=== PATIENT | male | born 1960 | race Caucasian/White ===

== ENCOUNTER 2017-02-17 10:16 | Emergency (ER) | payer OTHER ==
[2017-02-17 10:20] VITALS: TEMP 98.4; BMI 28.3
[2017-02-17] MEDS ORDERED: LISINOPRIL 20 MG TABLET (FP) PO ONE (11:11)
[2017-02-17] MEDS ORDERED: ACETAMINOPHEN 325 MG TABLET (FP) PO ONE (11:12)
[2017-02-17] MEDS ORDERED: METOPROLOL SUCCINATE 25 MG TAB.SR.24H (FP) PO ONE (11:12)
[2017-02-17] MEDS ORDERED: METOPROLOL SUCCINATE 50 MG TAB.SR.24H (FP) ONE (11:15)
[2017-02-17] MEDS ORDERED: LISINOPRIL 20 MG TABLET (FP) ONE (11:15)
[2017-02-17] MEDS ORDERED: ACETAMINOPHEN 325 MG TABLET (FP) ONE (11:17)
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
[2017-02-17 12:34] VITALS: BP 148/101; PULSE 78
== END 2017-02-17 12:42 | disposition home or self-care (01) ==
LOC: JER 10:16 → JERFT 10:16 → JER 12:42
DX: S00.03XA Contusion of scalp, initial encounter (principal); I10 Essential (primary) hypertension; V78.4XXA Person boarding or alighting from bus injured in noncollision transport accident, initial encounter; Y92.488 Other paved roadways as the place of occurrence of the external cause; Y93.89 Activity, other specified; Y99.0 Civilian activity done for income or pay
CPT/HCPCS: 70450-TC; 99281-25

== ENCOUNTER 2017-06-05 07:54 | Emergency (ER) | payer OTHER ==
[2017-06-05 08:02] VITALS: BP 150/85; PULSE 55; TEMP 98.3; BMI 30.7
--- NOTE | 2017-06-05 10:24 | PDOC ---
History of Present Illness - History of Present Illness Initial Comments: 06/05/17 11:26 "The patient is a 57 year old male, with a significant past medical history of diverticulitis, hypertension, polycystic kidney disease (s/p right nephrectomy) , who presents to the emergency department with left lower quadrant pain for approximately 6 days. He reports his pain is nonradiating, and denies any nausea , vomiting, diarrhea, constipation, or rectal bleeding. The patient states his symptoms feel exactly like his diverticulitis pain in the past, for which he has had 2 admissions. Patient reports he follows up with GI, Dr. Sanders, who last did an colonoscopy(2014) revealing diverticulitis. He denies any fever, chills, headache, or dizziness. He denies any dysuria, hematuria, frequency, or urgency. He denies any recent travel or sick contacts. Allergies: NKDA Past Surgical History: None reported Social History: Non smoker. No ETOH or recreational drug use. PCP: Dr. Miller GI: Dr. Sanders " <Evans Young - Last Filed: 06/05/17 13:26> <Selene Santillan - Last Filed: 06/05/17 14:14> - General Chief Complaint: Pain Stated Complaint: DIVERTICULITIS FLARE UP Time Seen by Provider: 06/05/17 09:52 Past History - Past Medical History COPD: No GI Disorders: Yes (diverticulitis.) Disorders: Yes (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) HTN: Yes - Surgical History Lung Surgery: Yes (BENIGN TUMOR BET LUNG AND THYROID) Orthopedic Surgery: Yes (RIGHT HAND; RIGHTR ELBOW; ROTATOR CUFF) - Suicide/Smoking/Psychosocial Hx Smoking History: Never smoked Have you smoked in the past 12 months: No Hx Alcohol Use: No Drug/Substance Use Hx: No Substance Use Type: None Hx Substance Use Treatment: No <Evans Young - Last Filed: 06/05/17 13:26> <Selene Santillan - Last Filed: 06/05/17 14:14> - Past Medical History Allergies/Adverse Reactions: Allergies Allergy/AdvReac Type Severity Reaction Status Date / Time No Known Allergies Allergy Verified 06/05/17 08:02 Home Medications: Ambulatory Orders Acetaminophen [Tylenol .Regular Strength -] 650 mg PO Q4H PRN #0 tablet Lisinopril [Prinivil] 20 mg PO DAILY #30 tablet 01/26/16 Metoprolol Succinate [Toprol XL -] 25 mg PO DAILY tab.sr.24h 01/26/16 Ciprofloxacin [Cipro -] 500 mg PO Q12H #14 tablet 06/05/17 Metronidazole [Flagyl -] 500 mg PO TID #21 tablet 06/05/17 Review of Systems - Review of Systems Comments:: 06/05/17 11:26 "GENERAL/CONSTITUTIONAL: No fever or chills. No weakness. HEAD, EYES, EARS, NOSE AND THROAT: No change in vision. No ear pain or discharge. No sore throat. CARDIOVASCULAR: No chest pain or shortness of breath. RESPIRATORY: No cough, wheezing, or hemoptysis. GASTROINTESTINAL: Yes left lower quadrant pain. No nausea, vomiting, diarrhea or constipation. GENITOURINARY: No dysuria, frequency, or change in urination. MUSCULOSKELETAL: No joint or muscle swelling or pain. No neck or back pain. SKIN: No rash NEUROLOGIC: No headache, vertigo, loss of consciousness, or change in strength/ sensation. ENDOCRINE: No increased thirst. No abnormal weight change. HEMATOLOGIC/LYMPHATIC: No anemia, easy bleeding, or history of blood clots. ALLERGIC/IMMUNOLOGIC: No hives or skin allergy. " <Evans Young - Last Filed: 06/05/17 13:26> *Physical Exam - Vital Signs Last Vital Signs Temp Pulse Resp BP Pulse Ox 98.3 F 55 L 20 150/85 98 06/05/17 07:55 06/05/17 07:55 06/05/17 07:55 06/05/17 07:55 06/05/17 07:55 - Physical Exam Comments: 06/05/17 11:26 "GENERAL: Awake, alert, and fully oriented, in no acute distress HEAD: No signs of trauma EYES: PERRLA, EOMI, sclera anicteric, conjunctiva clear ENT: Auricles normal inspection, hearing grossly normal, nares patent, oropharynx clear without exudates. Moist mucosa NECK: Nontender, no stepoffs, Normal ROM, supple, no lymphadenopathy, JVD, or masses LUNGS: Breath sounds equal, clear to auscultation bilaterally. No wheezes, and no crackles HEART: Regular rate and rhythm, normal S1 and S2, no murmurs, rubs or gallops ABDOMEN: Left lower quadrant tenderness to palpation. Soft, normoactive bowel sounds. No guarding, no rebound. No masses EXTREMITIES: Normal range of motion, no edema. No clubbing or cyanosis. No cords, erythema, or tenderness NEUROLOGICAL: Cranial nerves II through XII intact. 5/5 strength and sensation in all extremities, Normal speech, normal gait SKIN: Warm, Dry, normal turgor, no rashes or lesions noted." <Evans Young - Last Filed: 06/05/17 13:26> - Vital Signs Last Vital Signs Temp Pulse Resp BP Pulse Ox 98.3 F 55 L 20 150/85 98 06/05/17 07:55 06/05/17 07:55 06/05/17 07:55 06/05/17 07:55 06/05/17 07:55 <Selene Santillan - Last Filed: 06/05/17 14:14> ED Treatment Course - LABORATORY CBC & Chemistry Diagram: 06/05/17 10:11 06/05/17 10:11 <Evans Young - Last Filed: 06/05/17 13:26> - LABORATORY CBC & Chemistry Diagram: 06/05/17 10:11 06/05/17 10:11 - ADDITIONAL ORDERS Additional order review: Laboratory Results 06/05/17 06/05/17 06/05/17 10:11 10:11 10:11 PT with INR 12.80 H INR 1.13 PTT (Actin FS) 27.7 Sodium 137 Potassium 4.1 Chloride 105 Carbon Dioxide 25 Anion Gap 7 L BUN 12 Creatinine 1.1 Creat Clearance w eGFR > 60 Random Glucose 113 H Calcium 9.1 Magnesium Cancelled Total Bilirubin 0.8 AST 14 L D ALT 36 D Alkaline Phosphatase 74 Total Protein 7.1 Albumin 3.7 Total Amylase Cancelled Lipase 166 Urine Color Urine Appearance Urine pH Ur Specific [place] Urine Protein Urine Glucose (UA) Urine Ketones Urine Blood Urine Nitrite Urine Bilirubin Urine Urobilinogen Ur Leukocyte Esterase 06/05/17 10:11 PT with INR INR PTT (Actin FS) Sodium Potassium Chloride Carbon Dioxide Anion Gap BUN Creatinine Creat Clearance w eGFR Random Glucose Calcium Magnesium Total Bilirubin AST ALT Alkaline Phosphatase Total Protein Albumin Total Amylase Lipase Urine Color Ltyellow Urine Appearance Clear Urine pH 5.0 Ur Specific [place] 1.013 Urine Protein Negative Urine Glucose (UA) Negative Urine Ketones Negative Urine Blood Negative Urine Nitrite Negative Urine Bilirubin Negative Urine Urobilinogen Negative Ur Leukocyte Esterase Negative 06/05/17 10:11 RBC 4.32 MCV 95.6 MCHC 33.5 RDW 13.5 MPV 8.7 Neutrophils % 64.3 Lymphocytes % 22.7 Monocytes % 10.9 H Eosinophils % 1.6 Basophils % 0.5 - RADIOLOGY Radiograph Interpretation: 06/05/17 14:13 EXAM: CT Abdomen and Pelvis INTERPRETED BY: Dr. Pritchett REVIEWED BY: Dr. Young IMPRESSION: Acute uncomplicated diverticulitis is seen involving the lower descending/upper sigmoid colon. There has been interval resolution of acute diverticulitis involving the mid and lower thirds of the sigmoid colon since the prior CT exam of 01/14/2016. The remainder of the exam appears unchanged. Status post right nephrectomy. Diffuse hepatic steatosis. Small to moderate hiatal hernia. <Selene Santillan - Last Filed: 06/05/17 14:14> Medical Decision Making - Medical Decision Making 06/05/17 10:20 57 M with h/o diverticulitis presenting with 1 week of LLQ pain. Concerning for acute diverticulitis flare. Pt hemodynamically stable, afebrile. Low suspicion for abscess or flare. Will evaluate with CT abd/pelvis. - Labs - CTAP non-con (pt has prior nephrectomy) 06/05/17 13:27 CT consistent with uncomplicated diverticulitis of sigmoid colon. Pt to be started on cipro/flagyl. Will f/u with GI. 06/05/17 13:36 Pt reassessed - able to tolerate PO, vitals stable. Clinically stable for DC. Pt to call his GI doctor this afternoon upon dc. <Evans Young - Last Filed: 06/05/17 13:26> *DC/Admit/Observation/Transfer - Attestations Physician Attestion: 06/05/17 13:39 I, Dr. Evans Young MD, attest that this document has been prepared under my direction and personally reviewed by me in its entirety. I further attest, that it accurately reflects all work, treatment, procedures and medical decision -making performed by me. <Evans Young - Last Filed: 06/05/17 13:26> - Attestations Scribe Attestion: 06/05/17 11:45 Documentation prepared by Selene Santillan, acting as lpn or medical assistant for Evans Young MD. <Selene Santillan - Last Filed: 06/05/17 14:14> Diagnosis at time of Disposition: Diverticulitis - Discharge Dispostion Disposition: HOME - Prescriptions Prescriptions: Ciprofloxacin [Cipro -] 500 mg PO Q12H #14 tablet Metronidazole [Flagyl -] 500 mg PO TID #21 tablet - Referrals Referrals: Heraclio Sanders MD [Staff Physician] - Fuad Corcoran MD [Staff Physician] - - Patient Instructions Printed Discharge Instructions: DI for Diverticulitis Additional Instructions: route supervisor your prescriptions for cipro and flagyl at [facility]. Take them as prescribed starting tomorrow. If you experience worsening pain, vomiting, fevers, or any other concerning symptoms, return to the ER immediately. Otherwise, call your GI doctor today to set up a follow up appointment within 1 week. You should also see a surgeon to discuss potentially having surgery for your recurrent diverticulitis. Call the number provided to make an appointment.
[2017-06-05 10:25] LABS: BASO % 0.5 % (0-2.0); EOS % 1.6 % (0-4.5); HEMATOCRIT 41.3 % (35.4-49); HEMOGLOBIN 13.8 GM/dL (11.7-16.9); LYMPH % 22.7 % (8-40); MCH 32.1 pg (25.7-33.7); MCHC 33.5 g/dl (32.0-35.9); MEAN CELL VOLUME 95.6 fl (80-96); MEAN PLT VOLUME 8.7 fl (7.5-11.1); MONO % 10.9 % (3.8-10.2); NEUT % 64.3 % (42.8-82.8); PLATELET COUNT 213 K/MM3 (134-434); RBC 4.32 M/mm3 (4.00-5.60); RDW 13.5 % (11.9-15.9); WHITE BLOOD COUNT 6.9 K/mm3 (4.0-10.0)
[2017-06-05 10:35] LABS: INR 1.13 (0.82-1.09); PROTHROMBIN TIME (PATIENT) 12.8 SEC (9.98-11.88)
[2017-06-05 10:39] LABS: ACTIVATED PTT 27.7 SECONDS (26.9-34.4)
[2017-06-05 10:45] LABS: ALBUMIN 3.7 g/dl (3.4-5.0); ALK PHOS 74 U/L (45-117); ANION GAP 7 (8-16); BILIRUBIN,TOTAL 0.8 mg/dL (0.2-1.0); BLOOD UREA NITROGEN 12 mg/dL (7-18); CALCIUM 9.1 mg/dL (8.5-10.1); CHLORIDE 105 mmol/L (98-107); CO2 25 mmol/L (21-32); CREATININE 1.1 mg/dL (0.7-1.3); GLUCOSE,RANDOM 113 mg/dL (74-106); LIPASE 166 U/L (73-393); POTASSIUM 4.1 mmol/L (3.5-5.1); SGOT/AST 14 U/L (15-37); SGPT/ALT 36 U/L (12-78); SODIUM 137 mmol/L (136-145); TOT PROT 7.1 g/dl (6.4-8.2)
[2017-06-05 11:27] LABS: URINE APPEARANCE CLEAR; URINE BILIRUBIN NEGATIVE (NEGATIVE); URINE BLOOD NEGATIVE (NEGATIVE); URINE COLOR LTYELLOW; URINE GLUCOSE (UA) NEGATIVE (NEGATIVE); URINE KETONE NEGATIVE (NEGATIVE); URINE LEUK ESTERASE NEGATIVE (NEGATIVE); URINE NITRITE NEGATIVE (NEGATIVE); URINE PROTEIN NEGATIVE (NEGATIVE); URINE UROBILINOGEN NEGATIVE mg/dL (0.2-1.0)
[2017-06-05 11:55] LABS: AMYLASE 49 U/L (25-115); MAGNESIUM 2.2 mg/dL (1.8-2.4)
[2017-06-05] MEDS ORDERED: metroNIDAZOLE 500 MG TABLET PO ONE (13:26)
[2017-06-05] MEDS: CIPROFLOXACIN 500 MG TABLET (RESTRICTED TO ID) PO ONE ×2 (13:33→14:24)
[2017-06-05] MEDS ORDERED: metroNIDAZOLE 250 MG TABLET ONE (13:36)
[2017-06-05] MEDS ORDERED: LORazepam 2 MG/ML SDV VIAL ONE (13:53)
== END 2017-06-05 14:24 | disposition home or self-care (01) ==
LOC: JER 07:54
DX: K57.92 Diverticulitis of intestine, part unspecified, without perforation or abscess without bleeding (principal); I10 Essential (primary) hypertension; Q61.3 Polycystic kidney, unspecified
CPT/HCPCS: 36415; 74176-TC; 80053; 81003; 82150; 83690; 83735; 85025; 85610; 85730; 86850; 86900; 86901; 99283-25

== ENCOUNTER 2017-06-11 12:58 | Emergency (ER) | payer OTHER ==
[2017-06-11 13:17] VITALS: BMI 30.4
[2017-06-11] MEDS ORDERED: ACETAMINOPHEN 325 MG TABLET (FP) PO ONE (14:29)
[2017-06-11] MEDS ORDERED: ACETAMINOPHEN 325 MG TABLET (FP) ONE (14:35)
--- NOTE | 2017-06-11 14:52 | PDOC ---
History of Present Illness - General Chief Complaint: Pain, Acute Stated Complaint: STOMACH PAIN Time Seen by Provider: 06/11/17 14:14 - History of Present Illness Initial Comments: 06/11/17 14:47 Pt is a 57yo M with PMHx of HTN, PCKD (s/p R nephrectomy), currently being treated for recently diagnosed diverticulitis. He was sent from Dr. Bryson's office for a regularly scheduled followup but stated he had new onset RUQ pain for the past 6 days. He states the pain is constant but at times is exacerbated with foods. He has never had this pain before. Assoc with nausea. Denies vomiting, diarrhea, constipation. Denies radiation to the back. Denies chest pain. Denies prior cholecystectomy or problems with gallbladder. Denies alcohol or IVDA. Currently able to tolerate foods, but the pain is bothering him. Patient is still taking the Cipro/flagyl regimen from recent diverticulitis Past History - Past Medical History Allergies/Adverse Reactions: Allergies Allergy/AdvReac Type Severity Reaction Status Date / Time No Known Allergies Allergy Verified 06/11/17 13:13 Home Medications: Ambulatory Orders Acetaminophen [Tylenol .Regular Strength -] 650 mg PO Q4H PRN #0 tablet Lisinopril [Prinivil] 20 mg PO DAILY #30 tablet 01/26/16 Metoprolol Succinate [Toprol XL -] 25 mg PO DAILY tab.sr.24h 01/26/16 Ciprofloxacin [Cipro -] 500 mg PO Q12H #14 tablet 06/05/17 Metronidazole [Flagyl -] 500 mg PO TID #21 tablet 06/05/17 COPD: No GI Disorders: Yes (diverticulitis.) Disorders: Yes (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) HTN: Yes - Surgical History Lung Surgery: Yes (BENIGN TUMOR BET LUNG AND THYROID) Orthopedic Surgery: Yes (RIGHT HAND; RIGHTR ELBOW; ROTATOR CUFF) - Immunization History Immunization Up to Date: Yes - Suicide/Smoking/Psychosocial Hx Smoking History: Never smoked Have you smoked in the past 12 months: No If you are a former smoker, when did you quit?: 30YRS Information on smoking cessation initiated: No Hx Alcohol Use: No Drug/Substance Use Hx: No Substance Use Type: None Hx Substance Use Treatment: No *Physical Exam - Vital Signs Last Vital Signs Temp Pulse Resp BP Pulse Ox 98.3 F 51 L 16 158/95 98 06/11/17 13:14 06/11/17 13:14 06/11/17 13:14 06/11/17 13:14 06/11/17 13:14 - Physical Exam Comments: 06/11/17 14:50 GEN: AAOx3, NAD, Sitting in chair comfortably HEENT: PERRLA, Scleral icterus and sublingual icterus noted, EOMi CV: S1, S2, RRR LUNG: CTABL ABD: Soft, TTP in RUQ area w/ positive [place], also TTP in LLQ (site of recent diverticulitis) MSK: No edema, no erythem NEURO: CN 2-12 intact grossly ED Treatment Course - LABORATORY CBC & Chemistry Diagram: 06/11/17 14:47 06/11/17 14:47 - RADIOLOGY Radiology Studies Ordered: RUQ Ultrasound HIDA Scan 06/11/17 15:09 Medical Decision Making - Medical Decision Making 06/11/17 14:53 Pt is a 57yo M with PMHx of HTN, currently being treated for recent diverticulitis who presented with 6 days of RUQ pain. Likely related to gallbladder biliary colic/cholecystitis. Other ddx include atypical ACS presentation, pancreatitis. Will get CBC, CMP, Lipase, Troponin, EKG. Will get RUQ ultrasound to check for gallstones 06/11/17 15:36 CBC, CMP, Trops, Lipase are WNL. Pain has improved with Tylenol x1. Awaiting results of RUQ u/s 06/11/17 16:44 RUW ultrasound negative, no gallstones. Called Dr. Bryson, stated patient is improving with normal labs and ultrasound. As long as patient can tolerate foods , he can be discharged home. Patient is to continue taking antibiotics for his diverticulitis (Cipro/Flagyl). Nurse informed. Patient informed. *DC/Admit/Observation/Transfer Diagnosis at time of Disposition: Abdominal pain Qualifiers: Abdominal location: right upper quadrant Qualified Code(s): R10.11 - Right upper quadrant pain - Discharge Dispostion Disposition: HOME Condition at time of disposition: Improved Admit: No - Referrals Referrals: Wilberto Bryson MD [Staff Physician] - 1 week - Patient Instructions Additional Instructions: You were seen in the ER due to abdominal pain. It may be due to indigestion. There is no gallstones in your gallbladder. Your labs are normal. We called Dr. Bryson, and he wants you to see him in 1 week. Please continue taking your antibiotics for diverticulitis (Ciprofloxacin and Metronidazole). If you experience severe abdominal pain, chest pain, or shortness of breath, please return to the Emergency Room. - Post Discharge Activity
--- NOTE | 2017-06-11 14:56 | PDOC ---
Attending Attestation - Resident Resident Name: Jeovany Hermosillo - ED Attending Attestation I have performed the following: I have examined & evaluated the patient, The case was reviewed & discussed with the resident, I agree w/resident's findings & plan, Exceptions are as noted - HPI HPI: 06/11/17 14:54 57y M hx of diverticulitis, recently treated for such, sent by GI for complaint for new RUQ pain, worse with food. No prior history of GB diaseas/stones. w/o cp , vomiting, f/c, sob. +associated nasuea w/o vomiting. no etoh, nsaid abuse. on exam pt in no distress abd soft with mild tenderness in RUQ, no rebound/guarding ddx: gall stones, ocnsider cholecystitis, however very low suspicion w/o infectious complaints will obtain US, labs will dw gI at dispo - Physicial Exam PE: 06/14/17 11:41 see above - Medical Decision Making 06/14/17 11:41 see above
[2017-06-11 14:59] LABS: BASO % 0.8 % (0-2.0); EOS % 0.8 % (0-4.5); HEMATOCRIT 41.3 % (35.4-49); HEMOGLOBIN 13.6 GM/dL (11.7-16.9); LYMPH % 17.2 % (8-40); MCH 31.5 pg (25.7-33.7); MCHC 33.1 g/dl (32.0-35.9); MEAN CELL VOLUME 95.2 fl (80-96); MEAN PLT VOLUME 8.3 fl (7.5-11.1); MONO % 11.1 % (3.8-10.2); NEUT % 70.1 % (42.8-82.8); PLATELET COUNT 272 K/MM3 (134-434); RBC 4.33 M/mm3 (4.00-5.60); RDW 13.6 % (11.9-15.9); WHITE BLOOD COUNT 9.5 K/mm3 (4.0-10.0)
[2017-06-11 15:22] LABS: ALBUMIN 3.7 g/dl (3.4-5.0); ANION GAP 10 (8-16); BILIRUBIN,TOTAL 0.3 mg/dL (0.2-1.0); BLOOD UREA NITROGEN 11 mg/dL (7-18); CALCIUM 8.9 mg/dL (8.5-10.1); CHLORIDE 106 mmol/L (98-107); CO2 24 mmol/L (21-32); GLUCOSE,RANDOM 90 mg/dL (74-106); LIPASE 186 U/L (73-393); SGOT/AST 28 U/L (15-37); SGPT/ALT 57 U/L (12-78); SODIUM 140 mmol/L (136-145); TOT PROT 7.2 g/dl (6.4-8.2)
[2017-06-11 15:24] LABS: ALK PHOS 65 U/L (45-117)
[2017-06-11 16:55] VITALS: TEMP 98.1
[2017-06-11 17:22] VITALS: BP 121/74; PULSE 80
--- NOTE | 2017-06-12 10:51 | EKG ---
Test Reason : Blood Pressure : / mmHG Vent. Rate : 047 BPM Atrial Rate : 047 BPM P-R Int : 240 ms QRS Dur : 114 ms QT Int : 460 ms P-R-T Axes : 028 -43 -12 degrees QTc Int : 407 ms SINUS BRADYCARDIA WITH 1ST DEGREE A-V BLOCK LEFT AXIS DEVIATION INCOMPLETE RIGHT BUNDLE BRANCH BLOCK MODERATE VOLTAGE CRITERIA FOR LVH, MAY BE NORMAL VARIANT CANNOT RULE OUT SEPTAL INFARCT , AGE UNDETERMINED ABNORMAL ECG WHEN COMPARED WITH ECG OF 23-JAN-2016 10:18, INCOMPLETE RIGHT BUNDLE BRANCH BLOCK IS NOW PRESENT MINIMAL CRITERIA FOR SEPTAL INFARCT ARE NOW PRESENT Confirmed by SERVANDO CANDELARIO, TRICIA ([id number]) on 06/12/2017 10:51:24 AM Referred By: Confirmed By:TRICIA AL MD
== END 2017-06-11 17:21 | disposition home or self-care (01) ==
LOC: JER 12:58
DX: K57.92 Diverticulitis of intestine, part unspecified, without perforation or abscess without bleeding (principal); R10.11 Right upper quadrant pain; Q61.3 Polycystic kidney, unspecified; I10 Essential (primary) hypertension; Z90.5 Acquired absence of kidney
CPT/HCPCS: 36415; 76705-TC; 80053; 83690; 84484; 85025; 93005; 93010; 99283-25

== ENCOUNTER 2017-12-19 08:25 | Inpatient (IN) | payer OTHER ==
[2017-12-17 12:58] VITALS: BMI 30.7
--- NOTE | 2017-12-19 07:11 | HP ---
History & Physical Update - History History: No Change - Physical Physical: No Change - Assessment Assessment: No Change - Plan Plan: No Change (H&P located in patient's paper chart. Completed 12/11/17. No new complaints or medications. Here today for elective ACDF C4-C6.)
[2017-12-19] MEDS ORDERED: oxyCODONE HCL 10 MG SUSTAINED ACTING TABLET PO STA (09:03)
[2017-12-19] MEDS ORDERED: CEFAZOLIN 2 GM in DEXTROSE 5%-WATER - 100 ML IVPB ONE (09:03)
[2017-12-19] MEDS ORDERED: LIDOCAINE 1%/EPI 1:100000 (20 ML MULTI DOSE VIAL) ONE (10:41)
[2017-12-19] MEDS ORDERED: DEXAMETHASONE SOD PHOSPHATE/PF 10 MG/ML SDV ONE (11:33)
[2017-12-19] MEDS ORDERED: BUPIVACAINE HCL/PF (5 MG/ML) 30 ML VIAL IJ ONE (11:33)
[2017-12-19] MEDS ORDERED: MIDAZOLAM HCL 2 MG/2 ML SINGLE DOSE VIAL ONE (11:33)
[2017-12-19] MEDS ORDERED: fentaNYL CITRATE 250 MCG/5 ML VIAL ONE (12:00)
[2017-12-19] MEDS ORDERED: PROPOFOL 20 ML ONE ×7 (12:00→14:12)
[2017-12-19] MEDS ORDERED: LIDOCAINE HCL/PF 2% SDV 5ML VIAL ONE (12:02)
[2017-12-19] MEDS ORDERED: ONDANSETRON 4 MG/2 ML VIAL ONE (12:02)
[2017-12-19] MEDS ORDERED: DEXAMETHASONE SOD PHOSPHATE 4 MG/1 ML VIAL ONE (12:02)
[2017-12-19] MEDS ORDERED: ceFAZolin SODIUM 1 GM VIAL ONE ×2 (12:02→12:45)
[2017-12-19] MEDS ORDERED: THROMBIN (BOVINE) 5,000 UNIT VIAL TP ONE (12:12)
[2017-12-19] MEDS ORDERED: ePHEDrine SULFATE 50 MG/1 ML AMPULE ONE (12:57)
--- NOTE | 2017-12-19 14:42 | OP ---
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
[2017-12-19] MEDS ORDERED: oxyCODONE HCL 5 MG TABLET PO PRN (14:43)
[2017-12-19] MEDS ORDERED: ONDANSETRON 4 MG/2 ML VIAL IVPUSH PRN (14:43)
--- NOTE | 2017-12-19 14:43 | SURG ---
Surgery Research Engineer Note Research Engineer: Yuan Lennon PA-C Date of Service: 12/19/17 Diagnosis: C4/5, C5/6 stenosis, radiculopathy, myelopathic Procedure: C4/5, C5/6 ACDF allograft implant x 2, neuromonitoring I was present for the entirety of the operative procedure. For further detail, please refer to operative report. Visit type - Case Type Case Type: Scheduled - New patient This patient is new to me today: Yes Date on this admission: 12/19/17
[2017-12-19] MEDS ORDERED: LACTATED RINGERS SOLUTION 1,000 ML IV SCH (14:45)
--- NOTE | 2017-12-19 15:41 | OP ---
DATE OF OPERATION: 12/19/2017 PREOPERATIVE DIAGNOSIS: Cervical stenosis, C4-5 and C5-6. POSTOPERATIVE DIAGNOSIS: Cervical stenosis, C4-5 and C5-6. PROCEDURE PERFORMED: 1. Anterior cervical diskectomy and fusion, C4-5. 2. Anterior cervical diskectomy and fusion, C5-6. 3. Placement of instrumentation, C4 to C6. SURGEON: Dany Brown MD BOND UNDERWRITER: JUDI Arshad ESTIMATED BLOOD LOSS: 50 mL INTRAVENOUS FLUIDS: Per Anesthesia. ANESTHESIA: General. COMPLICATIONS: None. DISPOSITION: Patient brought to the PACU in stable condition. INDICATION FOR SURGERY. The patient is a 57-year-old gentleman who has been suffering from significant pain from his neck down his arms. X-rays and MRI were completed which noted that he had cervical stenosis at C4-5 and C5-6. He had gone through an exhaustive course of treatment for this, which included medications, physical therapy, as well as injections. Unfortunately, his pain continued to persist despite all this. At this point, risks, benefits, and alternatives were discussed, and the patient consented to surgery. DESCRIPTION OF PROCEDURE: Patient was brought to the operating room by anesthesia staff. After appropriate patient identification was performed, general anesthesia was given. A superficial cervical block was also given. Patient was placed supine on the OR bed, his arms tucked in to the sides. All areas of bony prominences were well padded at this time. A needle was taped onto his neck to maxim off the C4-5 level. X-ray was taken to confirm this was correct. Needle was removed, and 10 mL of lidocaine with epinephrine were injected into his neck at this time. His neck was prepped and draped in a sterile manner. At this point, timeout was completed, and a 2-inch incision was made on the left side of his neck. Dissection was carried down to the platysma. The platysma was cut in line with the skin incision. Next, the interval between the sternocleidomastoid and strap muscles was developed. Next, the interval between the carotid sheath and tracheoesophagus was developed. Peanuts were used to elevate it off the prevertebral fascia. A needle was placed into the C4-5 disk, and an x-ray was taken to confirm this was correct. Needle was removed, and [place] pins were placed into the body of C4 and C6. A knife was used to incise the disks, and distraction was applied. Retractor blades were placed in. At this point, the microscope was brought in. Using a series of pituitaries, Kerrisons, and curettes, diskectomies were completed. Endplates were decorticated at this time. Cages filled with bone graft were placed into both C4-5 and C5-6. A screw was placed into the body of C4, C5, and C6. Middleton pins removed. AP and lateral x-rays confirmed the instrumentation to be in good position. Final tightening was performed. The platysma was closed with 2-0 Vicryl suture. Skin was closed with 3-0 Monocryl suture. Dermabond was applied. Steri-Strips were applied. A sterile dressing was applied. Patient was placed supine on the OR bed, extubated in the OR, and brought to the PACU in stable condition. Michael WALTERS/[id number]
[2017-12-19] MEDS: oxyCODONE HCL 5 MG TABLET PO PRN ×2 (18:37→22:30)
[2017-12-19] MEDS: diazePAM 2 MG TABLET PO SCH ×2 (18:37→22:30)
[2017-12-19] MEDS: DEXAMETHASONE SOD PHOSPHATE 4 MG/1 ML VIAL IVPUSH SCH (18:38)
[2017-12-19] MEDS: CEFAZOLIN 1 GM/D5W 1 GRAM/50 ML BAG IVPB SCH (18:40)
[2017-12-20] MEDS: CEFAZOLIN 1 GM/D5W 1 GRAM/50 ML BAG IVPB SCH (02:38)
[2017-12-20] MEDS: DEXAMETHASONE SOD PHOSPHATE 4 MG/1 ML VIAL IVPUSH SCH ×2 (02:39→09:28)
[2017-12-20] MEDS: diazePAM 2 MG TABLET PO SCH (06:32)
--- NOTE | 2017-12-20 07:11 | DS ---
Physical Exam: SUBJECTIVE: POD #1. Patient seen and examined. Alert. Doing well. C/o incisional tenderness. Pain managed well via PRN medications. He's been OOB and ambulating unassisted. Tolerating diet without dysphagia. Voiding spontaneously. Wearing soft cervical collar as instructed. Denies n/v/f/c, CP, SOB, parasthesias OBJECTIVE: Last Vital Signs Temp Pulse Resp BP Pulse Ox 97.7 F 65 19 137/70 96 18 06:00 12/20/17 06:00 12/20/17 06:00 12/20/17 06:00 12/20/17 06:36 PE GENERAL: awake, alert, and fully oriented, in no acute distress. HEAD: Normal with no signs of trauma. EYES: PERRL, extraocular movements intact, sclera anicteric, conjunctiva clear. NECK: Trachea midline, supple. incision c/d/i. No hematoma LUNGS: CTA bilat HEART: RRR ABDOMEN: Soft, NT. ND EXTREMITIES: 2+ pulses, warm, well-perfused, no edema. NEUROLOGICAL: CN II through XII grossly intact. Normal speech PSYCH: Normal mood, normal affect. HOSPITAL COURSE: Date of Admission:[id number] Date of Discharge: 18 The patient was admitted to the Med-Surg Unit after an elective repair of their C4-C6 stenosis. Now, s/p C4-C6 ACDF. The day of surgery, the patient ambulated the hallways with assistance. Narcotic and non-narcotic pain management control was achieved with an oral and IV approach. POD #1, an xray was obtained and confirmed hardware placement at C4 -C6, no fractures or dislocations. Parris-operative IV ABX were administered. DVT prophylaxis was achieved with SCDs and early ambulation. The patient ambulated with Physical Therapy and no services were recommended upon discharge. Narcotic scripts and or muscle relaxants were checked with [place] [employer] INTEGRITY ANALYST prior to escribe. The discharge instructions and an oral pain management plan were reviewed with the patient. All questions answered. Above plan discussed with Dr. Brown and agreed. Minutes to complete discharge: 15 Visit type - Case Type Case Type: Scheduled
[2017-12-20 09:21] VITALS: BP 129/72; PULSE 63; TEMP 98
--- NOTE | 2017-12-20 09:31 | PN ---
Progress Note, Physician Chief Complaint: s/p ACDF under general anesthesia post op day one History of Present Illness: general anesthesia with oral analgesics for post op pain control - Current Medication List Current Medications: Active Medications Amlodipine Besylate (Norvasc -) 5 mg PO DAILY [facility] Dexamethasone Sodium Phosphate (Decadron Injection -) 4 mg IVPUSH Q8H-IV [facility] Last Admin: 12/20/17 09:28 Dose: 4 mg Diazepam (Valium -) 2 mg PO Q8H [facility] Last Admin: 12/20/17 06:32 Dose: 2 mg Fentanyl (Sublimaze Injection -) 50 mcg IVPUSH [id number] PRN PRN Reason: PAIN-PACU ORDER X 4 DOSES ONLY Hydrochlorothiazide (Hctz -) 25 mg PO DAILY [facility] Last Admin: 12/20/17 09:28 Dose: 25 mg Lactated Ringer's (Lactated Ringers Solution) 1,000 mls @ 125 mls/hr IV ASDIR [facility] Lisinopril (Prinivil) 20 mg PO DAILY [facility] Nebivolol (Bystolic -) 10 mg PO DAILY [facility] Last Admin: 12/20/17 09:28 Dose: 10 mg Ondansetron HCl (Zofran Injection) 4 mg IVPUSH Q6H PRN PRN Reason: NAUSEA AND/OR VOMITING Oxycodone HCl (Roxicodone -) 5 mg PO Q4H PRN PRN Reason: PAIN LEVEL 1-5 Last Admin: 12/19/17 22:30 Dose: 5 mg Oxycodone HCl (Roxicodone -) 10 mg PO Q4H PRN PRN Reason: PAIN LEVEL 6-10 Last Admin: 12/20/17 05:25 Dose: 10 mg - Objective Vital Signs: Vital Signs Temperature 98 F 12/20/17 09:20 Pulse Rate 63 12/20/17 09:20 Respiratory Rate 18 12/20/17 09:20 Blood Pressure 129/72 12/20/17 09:20 O2 Sat by Pulse Oximetry (%) 96 12/20/17 09:00 Constitutional: Yes: Well Nourished Cardiovascular: Yes: WNL Respiratory: Yes: WNL Gastrointestinal: Yes: WNL Assessment/Plan No adverse effects of anesthetic, no nausea or vomiting, no further intervention on the part of the the dept of anesthesia.
[2017-12-20] MEDS ORDERED: NEBIVOLOL 10 MG TABLET (FP) PO SCH (10:00)
[2017-12-20] MEDS ORDERED: LISINOPRIL 20 MG TABLET (FP) PO SCH (10:00)
[2017-12-20] MEDS ORDERED: HYDROCHLOROTHIAZIDE 25 MG TABLET (FP) PO SCH (10:00)
[2017-12-20] MEDS ORDERED: amLODIPine BESYLATE 5 MG TABLET (FP) PO SCH (10:00)
[2017-12-20] MEDS ORDERED: PATIENT'S OWN MEDICATION (NON-FORMULARY) (Lisinopril/Hydrochlorothiazide [Lisinopril-Hctz PO SCH (10:00)
--- NOTE | 2017-12-23 11:56 | PATH ---
Surgical Pathology Report Patient Name: MATT TOURE Med. Rec. #: [id number] /Age/Gender: 1960 (Age: 57) / M Account: [id number] Location: [facility] MED-[facility]UR[facility] Taken: 12/19/2017 Received: 12/19/2017 Reported: 12/23/2017 Physicians: Dany Brown M.D. Specimen(s) Received C4-C5, C5-C6 Clinical History Cervical stenosis Final Diagnosis DISC, C4-5, C5-C6, ANTERIOR CERVICAL DISCECTOMY WITH ALLOGRAFT: INTERVERTEBRAL DISC TISSUE AND BONE. Electronically Signed Noemi Wilkerson M.D. Gross Description Received in formalin labeled "C4-C5, C5-C6 disc," is a 3.5 x 3.0 x 0.3 cm aggregate of olsen fragments of fibrocartilaginous tissue. A senior customer service representative portion is submitted in one cassette. 12/20/2017 saudi12/20/2017
== END 2017-12-20 11:40 | disposition home or self-care (01) | DRG 321 ==
LOC: FASU 08:25 → FASUSAT 08:25 → FASU 14:00 → FM/S 14:43
PROVIDERS: ADMIT Orthopaedic Surgery Orthopaedic Surgery of the Spine; ATTEND Orthopaedic Surgery Orthopaedic Surgery of the Spine
PROC: 0RB30ZZ Excision of Cervical Vertebral Disc, Open Approach (ICD-10-PCS; 2017-12-19)
PROC: 0RG20K0 Fusion of 2 or more Cervical Vertebral Joints with Nonautologous Tissue Substitute, Anterior Approach, Anterior Column, Open Approach (ICD-10-PCS; 2017-12-19)
PROC: 4A1104G Monitoring of Peripheral Nervous Electrical Activity, Intraoperative, Open Approach (ICD-10-PCS; 2017-12-19)
PROC: 0RG20A0 Fusion of 2 or more Cervical Vertebral Joints with Interbody Fusion Device, Anterior Approach, Anterior Column, Open Approach (ICD-10-PCS; principal; 2017-12-19 10:30)
DX: M48.02 Spinal stenosis, cervical region (principal); M54.12 Radiculopathy, cervical region; I10 Essential (primary) hypertension
CPT/HCPCS: 72050-TC-FY; 76001-TC-FY; 88304-TC; 94760; 97116-GP; 97161-GP

== ENCOUNTER 2018-05-01 15:54 | Emergency (ER) | payer OTHER ==
--- NOTE | 2018-05-01 16:00 | PDOC ---
Rapid Medical Evaluation Time Seen by Provider: 05/01/18 15:56 Medical Evaluation: Allergies Allergy/AdvReac Type Severity Reaction Status Date / Time NSAIDS (Non-Steroidal Allergy Severe PT UNABLE Verified 12/19/17 15:16 Anti-Inflamma TO TAKE DUE TO KIDNEY DISEASE I have performed a brief in-person evaluation of this patient. The patient presents with a chief complaint of: green sputum. green discharge from nose. SOB. all for 3 weeks Pertinent physical exam findings: no respiratory distress I have ordered the following: nothing The patient will proceed to the ED for further evaluation. Discharge Disposition - Diagnosis URI (upper respiratory infection) - Referrals - Patient Instructions - Post Discharge Activity
[2018-05-01 16:01] VITALS: BP 152/87; PULSE 57; TEMP 98.3; BMI 29.9
--- NOTE | 2018-05-01 16:35 | PDOC ---
History of Present Illness - General Chief Complaint: Respiratory Stated Complaint: COUGH, SOB Time Seen by Provider: 05/01/18 15:56 History Source: Patient Exam Limitations: No Limitations - History of Present Illness Initial Comments: 05/01/18 16:28 HISTORY OF PRESENT ILLNESS: 64-year-old male with history of nephrectomy and cervical spinal fusion presents emergency department for evaluation of nasal congestion for 3 weeks. Patient reports she's been taking [id number] symptomatic treatment which has not helped. He noted brown nasal discharge swell blowing his nose today and presented for evaluation after that. Patient reports he took some amoxicillin that he had this Left over from a previous visit. He denies any headaches, blurry vision, chest pain, shortness of breath, abdominal pain, nausea, vomiting. Patient does report having intermittent dry cough. No recent travel or sick contacts. PAST MEDICAL HISTORY: htn SURGICAL HISTORY: see hpi ALLERGIES: No known drug allergies REVIEW OF SYSTEMS General/Constitutional: Denies fever or chills. Denies weakness, weight change. HEENT: Denies change in vision. Denies ear pain or discharge. Denies sore throat. Nasal congestion. Cardiovascular: Denies chest pain or shortness of breath. Respiratory: Dry cough. Denies wheezing, or hemoptysis. Gastrointestinal: Denies nausea, vomiting, diarrhea or constipation. Denies rectal bleeding. Genitourinary: Denies dysuria, frequency, or change in urination. Musculoskeletal: Denies joint or muscle swelling or pain. Denies neck or back pain. Skin and breasts: Denies rash or easy bruising. Neurologic: Denies headache, vertigo, loss of consciousness, or loss of sensation. Psychiatric: Denies depression or anxiety. Endocrine: Denies increased thirst. Denies abnormal weight change. Hematologic/Lymphatic: Denies anemia, easy bleeding, or history of blood clots. Allergic/Immunologic: Denies hives or skin allergy. Denies latex allergy. PHYSICAL EXAM General Appearance: Well-appearing, appropriately dressed. No apparent distress , no intoxication. HEENT: EOMI, PERRLA, normal ENT inspection, normal voice, TMs normal, pharynx normal. No conjunctival pallor. No photophobia, scleral icterus. Maxillary sinus tenderness to light palpation. Become purulent nasal discharge. Sinus pressure worsens while leaning forward. Pressure temporarily relieved with sinus massage. Neck: Supple. Trachea midline. No tenderness, rigidity, carotid bruit, stridor , lymphadenopathy, or thyromegaly. Respiratory/Chest: Lungs CTAB. No shortness of breath, chest tenderness, respiratory distress, accessory muscle use. No crackles, rales, rhonchi, stridor , wheezing, dullness Cardiovascular: RRR. S1, S2. No JVD, murmur, bradycardia, tachycardia. Vascular Pulses: Dorsalis-Pedis (R): 2+, Dorsalis-Pedis (L): 2+ Gastrointestinal/Abdominal: Normal bowel sounds. Abdomen soft, non-distended. No tenderness or rebound tenderness. No organomegaly, pulsatile mass, guarding, hernia, hepatomegaly, splenomegaly. Lymphatic: No adenopathy, tenderness. Musculoskeletal/Extremities: Normal inspection. FROM of all extremities, normal capillary refill. Pelvis Stable. No CVA tenderness. No tenderness to extremities, pedal edema, swelling, erythema or deformity. Integumentary: Appropriate color, dry, warm. No cyanosis, erythema, jaundice or rash Neurologic: store person II-XII intact. Fully oriented, alert. Appropriate mood/affect. Motor strength 5/5. No appreciable EOM palsy, facial droop or sensory deficit. Past History - Past Medical History Allergies/Adverse Reactions: Allergies Allergy/AdvReac Type Severity Reaction Status Date / Time NSAIDS (Non-Steroidal Allergy Severe PT UNABLE Verified 05/01/18 15:56 Anti-Inflamma TO TAKE DUE TO KIDNEY DISEASE Home Medications: Ambulatory Orders Amlodipine Besylate 5 mg PO DAILY 12/17/17 Lisinopril/Hydrochlorothiazide [Lisinopril-Hctz 20-25 mg Tab] 1 each PO DAILY Nebivolol HCl [Bystolic] 10 mg PO DAILY 12/17/17 Acetaminophen [Tylenol .Regular Strength -] 650 mg PO Q6H PRN 12/19/17 Amox-Tr/K Cl [Augmentin - 875Mg Tablet] 1 tab PO BID #20 tablet 05/01/18 Anemia: No Asthma: No Cancer: No Cardiac Disorders: No CVA: No COPD: No CHF: No Dementia: No Diabetes: No GI Disorders: Yes (diverticulitis.) Disorders: Yes (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) HTN: Yes Hypercholesterolemia: No Liver Disease: No Seizures: No Thyroid Disease: No - Surgical History Abdominal Surgery: No Appendectomy: No Cardiac Surgery: No Cholecystectomy: No Lung Surgery: Yes (BENIGN TUMOR BET LUNG AND THYROID) Neurologic Surgery: No Orthopedic Surgery: Yes (RIGHT HAND; RIGHTR ELBOW; ROTATOR CUFF) - Immunization History Immunization Up to Date: Yes - Suicide/Smoking/Psychosocial Hx Smoking History: Never smoked Have you smoked in the past 12 months: No If you are a former smoker, when did you quit?: 30YRS Hx Alcohol Use: Yes (socially) Drug/Substance Use Hx: No Substance Use Type: Alcohol Hx Substance Use Treatment: No *Physical Exam - Vital Signs Last Vital Signs Temp Pulse Resp BP Pulse Ox 98.3 F 57 L 20 152/87 98 05/01/18 16:00 05/01/18 16:00 05/01/18 16:00 05/01/18 16:00 05/01/18 16:00 Moderate Sedation - Procedure Monitoring Vital Signs: Procedure Monitoring Vital Signs Temperature 98.3 F 05/01/18 16:00 Pulse Rate 57 L 05/01/18 16:00 Respiratory Rate 20 05/01/18 16:00 Blood Pressure 152/87 05/01/18 16:00 O2 Sat by Pulse Oximetry (%) 98 05/01/18 16:00 Medical Decision Making - Medical Decision Making 05/01/18 16:32 A/P: 58-year-old male with nasal congestion and mucopurulent nasal discharge for 3 weeks Nasal pressure to the maxillary sinuses which worsens while leaning forward Pressure relief and sinuses with gentle maxillary massage Mucopurulent nasal discharge present Oropharynx with cobblestoning present in the posterior Lungs clear to auscultation bilaterally Physical exam is consistent with a maxillary sinusitis. I symptoms have been present for 3 weeks I will treat the patient with Augmentin 875 twice a day for 10 days. I discussed the physical exam findings, ancillary test results and final diagnoses with the patient. I answered all of the patient's questions. The patient was satisfied with the care received and felt comfortable with the discharge plan and treatment plan. The patient will call their primary care physician within 24 hours to arrange follow-up and will return to the Emergency Department with any new, persistent or worsening symptoms. *DC/Admit/Observation/Transfer Diagnosis at time of Disposition: Sinusitis nasal Qualifiers: Sinusitis location: maxillary Chronicity: acute Recurrence: not specified as recurrent Qualified Code(s): J01.00 - Acute maxillary sinusitis, unspecified - Discharge Dispostion Disposition: HOME Condition at time of disposition: Stable Decision to Admit order: No - Prescriptions Prescriptions: Amox-Tr/K Cl [Augmentin - 875Mg Tablet] 1 tab PO BID #20 tablet - Referrals Referrals: Jass Verdin MD [Primary Care Provider] - - Patient Instructions Printed Discharge Instructions: DI for Sinusitis Additional Instructions: Rest, drink lots of fluids: Teas, water, soups, Pedialyte Saltwater gargles Steamy showers/seem to face break up mucus Avoid contact with others until fevers and cough resolved Lots of handwashing and good hygiene Continue [id number] medications for symptomatic relief Tylenol or Motrin for fever and pain Augmentin 1 tablet twice a day until all medicine has been completed. FINISH ALL THE ANTIBIOTICS- even if you feel better. Followup with private physician in one to 2 days as needed Return to emergency department for worsened symptoms, fevers, dehydration - Post Discharge Activity
== END 2018-05-01 16:36 | disposition home or self-care (01) ==
LOC: JERFT 15:54
DX: J01.00 Acute maxillary sinusitis, unspecified (principal)
CPT/HCPCS: 99281-25